=== PATIENT | male | born 1995 | race African-American/Black ===

== ENCOUNTER 2019-09-03 00:27 | Emergency (ER) | payer OTHER, SELFPAY ==
[2019-09-03 00:35] VITALS: BP 116/60; PULSE 94; RESP 19; TEMP 38.6; O2SAT 100; BMI 21.6
--- NOTE | 2019-09-03 00:49 | ED.GENADULT ---
HPI - General Adult General Chief complaint: Fever Stated complaint: fever, cough, sore throat runny nose headache Time Seen by Provider: 09/03/19 00:41 Source: patient Mode of arrival: Ambulatory Limitations: no limitations History of Present Illness HPI narrative: Otherwise healthy 24-year-old male here for evaluation of fever, body aches, chills, sore throat. Did take Tylenol prior to arrival. No rashes. No recent travel. No recent antibiotics. Review of Systems Constitutional Constitutional: Reports chills, Reports fatigue, Reports fever(s), Denies headache(s) and Reports lethargy ENT Ears, Nose, Mouth, and Throat: Denies dizziness, Denies headache(s) and Reports sore throat Cardiovascular Cardiovascular: Denies chest pain and Denies dyspnea Respiratory Respiratory: Denies cough and Denies dyspnea Gastrointestinal Gastrointestinal: Denies nausea and Denies vomiting Integumentary/Breasts Skin/Breast: Denies lesions and Denies rash Neurologic Neurologic: Denies behavioral changes, Denies dizziness and Denies headache(s) Psychiatric Psychiatric: Denies behavioral changes Endocrine Endocrine: Reports fatigue Hematologic/Lymphatic Hematologic/Lymphatic: Denies easy bleeding and Denies easy bruising Patient History Medical History Healthy adult (Acute) Social History Smoking Status: Never smoker Exam Initial Vital Signs Initial Vital Signs: Vital Signs Temperature 101.5 F H 09/03/19 00:35 Pulse Rate 94 H 09/03/19 00:35 Respiratory Rate 19 09/03/19 00:35 Blood Pressure 116/60 09/03/19 00:35 Pulse Oximetry 100 09/03/19 00:35 Const General: cooperative and comfortable HENMT Ears: TM's normal bilaterally Mouth: oral mucosae normal and moist mucous membranes Throat: posterior oropharynx normal Resp Effort & Inspection: normal respiratory effort Auscultation: clear to auscultation bilaterally Cardio Rate: regular rate Rhythm: regular rhythm GI Inspection: non-distended Palpation: soft Skin Lesions: no lesions Rashes: no rashes Neuro General: alert and awake Cognition: normal cognition Speech: speech normal Extrem General: normal to inspection and capillary refill normal Course Orders Ordered: ED Orders 09/03/19 00:45 Flu test [Influenza A & B (PCR)] Stat Vital Signs Vital signs: Vital Signs - 8 hr 09/03/19 00:35 Temperature 101.5 F H Pulse Rate 94 H Respiratory Rate 19 Blood Pressure 116/60 Pulse Oximetry 100 Medical Decision Making Lab Data Lab results reviewed: Yes I reviewed the patient's lab results. Labs: Lab Results 09/03/19 Range/Units 00:45 Influenza A (RT-PCR) Flu a negative (NEGATIVE) Influenza B (RT-PCR) Flu b negative (NEGATIVE) MDM Narrative Medical decision making narrative: Flu test is negative, clinically patient does not have strep throat. Although the rest of his symptoms are fairly consistent with fluid. Has had body aches, sore throat, fevers, chills. His lungs are clear. Low suspicion for pneumonia. Will hold on radiologic studies. No indication for antibiotics. We discussed the use of Tylenol and ibuprofen for fevers. We discussed return precautions and follow-up instructions. He expressed understanding and agreement with plan. Discharge Plan Departure Patient Disposition: Home Clinical Impression: Influenza-like illness Instructions: DI for Fever (Symptom) -- Adult Activity Restrictions/Additional Instructions: He can take Tylenol/acetaminophen and/or Motrin/ibuprofen for any fevers or body aches. Be sure to increase his fluid intake. [place] Return to the emergency department for any new or worsening symptoms Stand Alone Forms: Work Release Note
[2019-09-03 01:32] LABS: Influenza A - CEPHEID Flu A NEGATIVE (NEGATIVE); Influenza B - CEPHEID Flu B NEGATIVE (NEGATIVE)
[2019-09-03 02:04] VITALS: BP 103/55; PULSE 86; RESP 15; TEMP 38.1; O2SAT 98
== END 2019-09-03 02:05 | disposition home or self-care (01) ==
PROVIDERS: Emergency Provider Emergency Medicine
DX: R69 Illness, unspecified (principal)
CPT/HCPCS: 87502; 99281; 99283